=== PATIENT | male | born 1980 | race African-American/Black ===

== ENCOUNTER 2023-02-27 05:43 | Emergency (ER) | payer MEDICAID, OTHER ==
[~2023-02-27] VITALS: Ht 170.2 cm; Wt 69.0 kg
[2023-02-27 05:45] VITALS: BP 121/66; O2SAT 98
[2023-02-27] MEDS ORDERED: METH-653 MT (06:54)
[2023-02-27] MEDS ORDERED: MELO-106 MT (06:54)
[2023-02-27 07:15] VITALS: PULSE 78; RESP 14; TEMP 98
== END 2023-02-27 07:15 | disposition home or self-care (01) ==
LOC: ER 06:11
DX: S39.012A Strain of muscle, fascia and tendon of lower back, initial encounter (principal); X58.XXXA Exposure to other specified factors, initial encounter; Y93.89 Activity, other specified; Y92.89 Other specified places as the place of occurrence of the external cause; Y99.8 Other external cause status
CPT/HCPCS: 99281; 99283

== ENCOUNTER 2024-07-04 08:27 | Emergency (ER) | payer SELFPAY ==
[~2024-07-04] VITALS: Ht 172.7 cm; Wt 62.1 kg
[~2024-07-04 08:27] MED LIST: MELO-106 MT; METH-653 MT
[2024-07-04 08:29] VITALS: O2SAT 98
[2024-07-04 09:43] LABS: BASOPHILS % 0.3 % (0.0-2.0); HEMATOCRIT. 39.6 % (42.0-52.0); HEMOGLOBIN. 13.3 g/dL (14.0-18.0); LYMPHOCYTES % 9.6 % (20.0-50.0); MEAN CORPUSCULAR HEMOGLOBIN 29.8 pg (28.0-32.0); MEAN CORPUSCULAR HGB CONC 33.6 g/dL (31.0-37.0); MEAN CORPUSCULAR VOLUME 88.6 fL (80.0-94.0); MEAN PLATELET VOLUME 7.9 fl (7.4-10.4); NEUTROPHILS % 82.1 % (40.0-76.0); PLATELET 144 x1000/uL (130-400); RED BLOOD CELL COUNT 4.47 mill/uL (4.7-6.1); RED CELL DISTRIBUTION WIDTH 15.9 % (11.6-14.6); WHITE BLOOD COUNT 6.9 x1000/uL (4.5-11.0)
[2024-07-04 09:47] LABS: CHLORIDE 95 mEq/L (98-107); POTASSIUM 3.7 mEq/L (3.5-5.1); SODIUM 132 mEq/L (136-145)
[2024-07-04 09:48] LABS: CALCIUM 9.2 mg/dL (8.7-10.4); CARBON DIOXIDE 27 mEq/L (21-32)
[2024-07-04 09:53] LABS: CREATININE 0.8 mg/dL (0.6-1.3); GLUCOSE 84 mg/dL (70-105); INR 1.1; PROTHROMBIN TIME 11.7 sec (9.6-11.0)
[2024-07-04 09:54] LABS: UREA NITROGEN BLOOD 16 mg/dL (9-23)
[2024-07-04 09:55] LABS: ALANINE AMINOTRANSFERASE 46 IU/L (10-49); ALBUMIN 4.2 g/dL (3.2-4.8); ASPARTATE AMINOTRANSFERASE 106 IU/L (<34); BILIRUBIN DIRECT 0.5 mg/dL (<=3.0); BILIRUBIN TOTAL 1.3 mg/dL (0.1-1.0); PROTEIN TOTAL 7.7 g/dL (6.0-8.3)
[2024-07-04 10:43] LABS: CLARITY URINE CLEAR (CLEAR); COLOR URINE DARK YELLOW (YELLOW); GLUCOSE URINE NEGATIVE (NEGATIVE); KETONES URINE 2+ (NEGATIVE); LEUKOCYTE ESTERASE URINE NEGATIVE (NEGATIVE); NITRITE URINE NEGATIVE (NEGATIVE); OCCULT BLOOD URINE NEGATIVE (NEGATIVE); PH URINE 6.5 (4.5-8.0); PROTEIN URINE 1+ (NEGATIVE); SPECIFIC GRAVITY URINE 1.021 (1.005-1.030)
[2024-07-04 10:52] LABS: SQUAMOUS EPITHELIAL CELL URINE NONE SEEN /lpf (RARE/1+); WBC URINE 0-2 /hpf (0-2)
[2024-07-04 10:53] LABS: BACTERIA URINE FEW; YEAST URINE NONE SEEN
[2024-07-04 10:56] LABS: *AMPHETAMINES SCREEN URINE NEGATIVE (NEGATIVE); *BARBITURATES SCREEN URINE NEGATIVE (NEGATIVE); *BENZODIAZEPINES SCREEN URINE NEGATIVE (NEGATIVE); *COCAINE SCREEN URINE NEGATIVE (NEGATIVE); METHADONE URINE SCREEN NEGATIVE (NEGATIVE)
[2024-07-04 10:57] LABS: CANNABINOID URINE SCREEN PRESUMPTIVE POSITIVE (NEGATIVE); ECSTASY MDMA SCREEN URINE NEGATIVE (NEGATIVE); OPIATES URINE SCREEN NEGATIVE (NEGATIVE); PHENCYCLIDINE URINE SCREEN NEGATIVE (NEGATIVE)
[2024-07-04] MEDS ORDERED: POLY119P2 MT (11:38)
[2024-07-04] MEDS ORDERED: FEO PR (11:38)
[2024-07-04 11:49] VITALS: BP 148/82; PULSE 100; RESP 16; TEMP 37.33632; O2SAT 98
[2024-07-04] MEDS ORDERED: IOHEXOL-300 100 ML BOTTLE ONE (14:00)
== END 2024-07-04 11:58 | disposition home or self-care (01) ==
LOC: ER 08:27
DX: K59.00 Constipation, unspecified (principal); K62.89 Other specified diseases of anus and rectum; Z88.0 Allergy status to penicillin; Z79.1 Long term (current) use of non-steroidal anti-inflammatories (NSAID)
CPT/HCPCS: 80076; 80305; 80048; 81003; 83690; 85025; 85610; 36415; 74177; 99285; Q9967; Z7610